=== PATIENT | male | born 1975 | race African-American/Black ===

== ENCOUNTER 2021-05-08 00:31 | Emergency (ER) | payer MEDICAID ==
[~2021-05-08] VITALS: Ht 185.4 cm; Wt 91.0 kg
[2021-05-08 00:33] VITALS: BP 148/85
== END 2021-05-08 01:20 | disposition home or self-care (01) ==
LOC: ER 00:31
DX: M79.671 Pain in right foot (principal); F91.8 Other conduct disorders
CPT/HCPCS: 99283

== ENCOUNTER 2021-07-26 15:27 | Emergency (ER) | payer OTHER, MEDICAID ==
[~2021-07-26] VITALS: Ht 177.8 cm; Wt 89.0 kg
[2021-07-26] MEDS ORDERED: LORAZEPAM 2MG/ML CPJ IV STA (15:43)
[2021-07-26] MEDS ORDERED: ONDANSETRON HCL 4MG/2ML INJ IV STA (15:43)
[2021-07-26] MEDS ORDERED: SODIUM CHLORIDE 0.9% 1,000 ML IV ONE (15:45)
[2021-07-26 16:44] LABS: BASOPHILS % 0.3 % (0.0-2.0); EOSINOPHILS % 3.6 % (0.0-5.0); HEMOGLOBIN. 15.4 g/dL (14.0-18.0); LYMPHOCYTES % 20.8 % (20.0-50.0); MEAN CORPUSCULAR HEMOGLOBIN 30.8 pg (28.0-32.0); MEAN CORPUSCULAR VOLUME 94.4 fL (80.0-94.0); MEAN PLATELET VOLUME 8.9 fl (7.4-10.4); NEUTROPHILS % 68.3 % (40.0-76.0); PLATELET 246 x1000/uL (130-400); RED BLOOD CELL COUNT 4.98 mill/uL (4.7-6.1); RED CELL DISTRIBUTION WIDTH 14.3 % (11.6-14.6)
[2021-07-26 16:48] LABS: CHLORIDE 108 mEq/L (98-107)
[2021-07-26 16:54] LABS: ETHANOL BLOOD < 10 mg/dL
[2021-07-26 16:58] LABS: CREATINE KINASE 292 IU/L (39-308)
[2021-07-26] MEDS ORDERED: DIVALPROEX SODIUM 500MG ER TABLET PO NR (22:00)
[2021-07-26 23:18] VITALS: BP 121/73
== END 2021-07-26 23:23 | disposition home or self-care (01) ==
LOC: ER 15:27
DX: F10.10 Alcohol abuse, uncomplicated (principal); F17.200 Nicotine dependence, unspecified, uncomplicated; Z98.890 Other specified postprocedural states; Y90.0 Blood alcohol level of less than 20 mg/100 ml
CPT/HCPCS: 36415; 70450; 71045; 80053; 80307; 80320; 80329; 82140; 82550; 83690; 85025; 96361; 96374; 96375; 99285; J2060; J2405; J7030; G0480

== ENCOUNTER 2021-12-23 23:37 | Emergency (ER) | payer MEDICAID, OTHER ==
[~2021-12-23] VITALS: Ht 182.9 cm; Wt 82.0 kg
[2021-12-23 23:40] VITALS: BP 160/94
== END 2021-12-24 04:41 | disposition home or self-care (01) ==
LOC: ER 23:37
DX: M25.551 Pain in right hip (principal); F10.229 Alcohol dependence with intoxication, unspecified; J45.909 Unspecified asthma, uncomplicated; F31.9 Bipolar disorder, unspecified; Y90.0 Blood alcohol level of less than 20 mg/100 ml
CPT/HCPCS: 99283